=== PATIENT | male | born 1935 | race Caucasian/White ===

== ENCOUNTER 2017-07-01 09:22 | Observation (INO) | payer OTHER ==
[2017-07-01] MEDS ORDERED: MECLIZINE HCL 12.5 MG TAB ONE ×2 (10:16→14:18)
--- NOTE | 2017-07-01 10:52 | RAD REPORT ---
EXAM DESCRIPTION: CT - Head Brain Wo Cont - 07/01/2017 10:44 am CLINICAL HISTORY: Nausea, vomiting, dizziness and syncope. COMPARISON: None. TECHNIQUE: All CT scans are performed using dose optimization technique as appropriate and may inclu de automated exposure control or mA/KV adjustment according to patient size. FINDINGS: No intracranial hemorrhage, hydrocephalus or extra-axial fluid collection.Moderate brain a trophy.No areas of brain edema or evidence of midline shift. The paranasal sinuses and mastoids are clear. The calvarium is intact. IMPRESSION: No acute intracranial abnormality.
[2017-07-01 11:05] LABS: Absolute Lymphocytes (CBC) 0.5 K/uL (0.7-4.9); Absolute Monocytes 0.7 K/uL (0.1-1.3); Absolute Neutrophil 7.3 K/uL (1.8-8.0); Basophils % 0.3 % (0-1.3); Eosinophils % 3.4 % (0-4.4); Hematocrit 39.3 % (39.6-49.0); Lymphocytes % 5.5 % (15.3-44.8); MCH 30.8 pg (27.0-35.0); MCV 93.7 fL (80-100); Monocytes % 8.2 % (3.3-12.3)
[2017-07-01 11:07] LABS: Potassium 3.6 mEq/L (3.6-5.0)
--- NOTE | 2017-07-01 11:07 | RAD REPORT ---
EXAM DESCRIPTION: RAD - Chest Single View - 07/01/2017 10:54 am CLINICAL HISTORY: Chest pain, dizziness COMPARISON: 02/25/2016 FINDINGS: Portable technique limits examination quality. The lungs are grossly clear. The heart is normal in size. No displaced fractures. IMPRESSION: No acute intrathoracic process suspected.
[2017-07-01 11:13] LABS: Albumin 3.5 g/dL (3.2-5.5); Bilirubin Direct 0.1 mg/dL (0-0.2); Bilirubin Total 0.4 mg/dL (0.3-1.2); Protein, Total 6.8 g/dL (6.0-8.3); Protime INR 1.23
[2017-07-01 11:15] LABS: CKMB Creatine Kinase MB 4.7 ng/ml (0.3-4.0)
--- NOTE | 2017-07-01 13:35 | RAD REPORT ---
EXAM DESCRIPTION: CT - Head angio - 07/01/2017 1:14 pm CLINICAL HISTORY: Headache, dizziness. COMPARISON: 07/01/2017 CT head FINDINGS: CT angiogram of the [place] was performed. Codominant vertebral arteries are noted with normal vertebrobasilar system. No significant flow abnor mality of the [place] is identified. No evidence of aneurysm, flow-limiting stenosis or vascula r malformation seen. Dural venous sinuses are patent. IMPRESSION: No significant flow abnormality of the [place] is seen.
[2017-07-01] MEDS ORDERED: NA CHLORIDE 0.9% 500 ML ONE (14:33)
--- NOTE | 2017-07-01 15:39 | EDPHYS ---
Physician Documentation [facility] Name: Diogo Ingram Age: 81 yrs Sex: Male : 1935 Arrival Date: 07/01/2017 Time: 09:25 Bed 18 Private MD: Shaina Washington C ED Physician Reed Dozier HPI: 07/01 11:00 This 81 yrs old Male presents to ER via EMS with complaints of pm1 Nausea/Vomiting, Dizziness. 11:00 The patient presents with vertigo. Onset: The symptoms/episode began/occurred pm1 yesterday. Context: occurred at home, just prior to the episode the patient experienced no apparent symptoms. Modifying factors: The symptoms are alleviated by nothing, the symptoms are aggravated by movement of head, standing up, changing position. Associated signs and symptoms: Pertinent positives: nausea, vomiting, Pertinent negatives: abdominal pain, chest pain, focal weakness, headache, numbness, palpitations, shortness of breath, tingling. Severity of symptoms: in the emergency department the symptoms have improved nausea improved with Phenergan given by EMS. Patient's baseline: Neuro: alert and fully oriented, Motor: no deficits, Ambulation: walks without assistance, Speech: normal. The patient has not recently seen a physician, the patient's primary care provider is Dr. Washington. Patient with onset of spinning sensation yesterday while helping his son with yard work. Resolved but returned this AM same symptoms of room spinning, nausea, and vomiting. Historical: - Allergies: 09:26 PENICILLINS; hb - Home Meds: 18:14 Methotrexate (Anti-Rheumatic) 2.5 mg x 6 Oral weekly [Active]; Zocor 40 mg Oral tab 1 hb tab once daily [Active]; Aciphex 20 mg Oral TbEC 1 tab once daily [Active]; folic acid 1 mg Oral tab 1 tab once daily [Active]; levothyroxine 75 mcg tab 1.5 tabs once daily [Active]; Lyrica 25 mg oral cap daily [Active]; methylprednisolone 2 mg Oral tab once daily [Active]; meloxicam 7.5 mg oral tab 1 tab as needed [Active]; Xanax 1 mg Oral tab nightly [Active]; - PMHx: 16:00 Rheumatoid Arthritis; Hypothyroidism; hb - PSHx: 09:26 Heart stents; Hernia repair; hb - Immunization history:: Adult Immunizations up to date. - Social history:: Smoking status: Patient/guardian denies using tobacco. ROS: 11:00 Constitutional: Negative for fever, chills, and weight loss, Eyes: Negative for injury, pm1 pain, redness, and discharge, ENT: Negative for injury, pain, and discharge, Neck: Negative for injury, pain, and swelling, Cardiovascular: Negative for chest pain, palpitations, and edema, Respiratory: Negative for shortness of breath, cough, wheezing, and pleuritic chest pain, Abdomen/GI: Negative for abdominal pain, nausea, vomiting, diarrhea, and constipation, Back: Negative for injury and pain, : Negative for injury, bleeding, discharge, and swelling, MS/Extremity: Negative for injury and deformity, Skin: Negative for injury, rash, and discoloration. 11:00 Neuro: Positive for dizziness, vertigo, Negative for headache, numbness, tingling, focal weakness. Exam: 11:00 Constitutional: This is a well developed, well nourished patient who is awake, alert, pm1 and in no acute distress. Head/Face: Normocephalic, atraumatic. Eyes: Pupils equal round and reactive to light, extra-ocular motions intact. Lids and lashes normal. Conjunctiva and sclera are non-icteric and not injected. Cornea within normal limits. Periorbital areas with no swelling, redness, or edema. ENT: Nares patent. No nasal discharge, no septal abnormalities noted. Tympanic membranes are normal and external auditory canals are clear. Oropharynx with no redness, swelling, or masses, exudates, or evidence of obstruction, uvula midline. Mucous membranes moist. Neck: Trachea midline, no thyromegaly or masses palpated, and no cervical lymphadenopathy. Supple, full range of motion without nuchal rigidity, or vertebral point tenderness. No Meningismus. Chest/axilla: Normal chest wall appearance and motion. Nontender with no deformity. No lesions are appreciated. Cardiovascular: Regular rate and rhythm with a normal S1 and S2. No gallops, murmurs, or rubs. No pulse deficits. Respiratory: Lungs have equal breath sounds bilaterally, clear to auscultation and percussion. No rales, rhonchi or wheezes noted. No increased work of breathing, no retractions or nasal flaring. Abdomen/GI: Soft, non-tender, with normal bowel sounds. No distension or tympany. No guarding or rebound. No evidence of tenderness throughout. Back: No spinal tenderness. No costovertebral tenderness. Full range of motion. Skin: Warm, dry with normal turgor. Normal color with no rashes, no lesions, and no evidence of cellulitis. MS/ Extremity: Pulses equal, no cyanosis. Neurovascular intact. Full, normal range of motion. 11:00 Neuro: Orientation: is normal, Mentation: is normal, Cranial nerves: CN II- XII are normal as tested, Abnormal movements: Vestibular nystagmus present. Vertigo symptoms reproduced with changes in position from lying to sitting and turning head side to side. Vital Signs: 09:27 BP 138 / 70; Pulse 65; Resp 17; Temp 98.4; Pulse Ox 100% on R/A; Pain 0/10; hb 10:41 BP 129 / 65; Pulse 63; Resp 18; Pulse Ox 97% on R/A; mh5 11:31 BP 133 / 75; Pulse 58; Resp 17; Pulse Ox 97% on R/A; mh5 12:24 BP 120 / 65; Pulse 59; Resp 16; Pulse Ox 96% on R/A; mh5 13:31 BP 130 / 68; Pulse 60; Resp 15; Pulse Ox 99% on R/A; hb 14:30 BP 118 / 68; Pulse 65; Resp 16; Pulse Ox 100% on R/A; hb 15:30 BP 122 / 68; Pulse 64; Resp 15; Pulse Ox 100% on R/A; hb 16:30 BP 114 / 67; Pulse 62; Resp 16; Pulse Ox 100% on R/A; Pain 0/10; hb 17:30 BP 119 / 60; Pulse 64; Resp 17; Pulse Ox 100% on R/A; hb 18:30 BP 120 / 72; Pulse 64; Resp 16; Pulse Ox 98% on R/A; hb 19:25 BP 112 / 52; Pulse 59; Resp 17; Pulse Ox 98% ; bp 20:00 BP 116 / 56; Pulse 63; Resp 16; Pulse Ox 97% ; bp MDM: 09:53 Patient medically screened. pm1 10:30 ED course: NIHSS: 0. No stroke symptoms. No need for TPA. pm1 15:36 Data reviewed: vital signs. Data interpreted: Pulse oximetry: on room air is 99 %. pm1 Interpretation: normal. Counseling: I had a detailed discussion with the patient and/or guardian regarding: the historical points, exam findings, and any diagnostic results supporting the discharge/admit diagnosis, lab results, radiology results, the need for outpatient follow up, a neurologist, to return to the emergency department if symptoms worsen or persist or if there are any questions or concerns that arise at home. 17:05 ED course: Patient's symptoms of BPPV have markedly improved with meclizine and Valium pm1 given in the ER but patient's family feel uncomfortable taking the patient home without complete resolution and also due to the care taking ability of the patient's . Patient's uses rolling walker. Will contact patient's PCP for admission due to fall risk. 17:11 Physician consultation: A Felix VINCENT regarding admission, patient's condition, would like pm1 consultation with physical therapy, fall precautions, meclizine 25 mg PO Q6H. 07/01 10:05 Order name: Basic Metabolic Panel; Complete Time: 11: pm07/01 10:05 Order name: BNP; Complete Time: :07/01 10:05 Order name: CBC with Diff; Complete Time: :07/01 10:05 Order name: Ckmb; Complete Time: : pm07/01 10:05 Order name: CPK; Complete Time: 11: pm07/01 10:05 Order name: LFT's; Complete Time: 11: pm07/01 10:05 Order name: Magnesium; Complete Time: 11: pm07/01 10:05 Order name: PT-INR; Complete Time: 11: pm07/01 10:05 Order name: Ptt, Activated; Complete Time: 11: pm07/01 10:05 Order name: Troponin (emerg Dept Use Only); Complete Time: 11: pm07/01 10:05 Order name: XRAY Chest (1 view); Complete Time: 11: pm07/01 10:07 Order name: CT Head Brain wo Cont; Complete Time: 11: pm07/01 12:48 Order name: Head angio; Complete Time: 13:50 EDMS 07/01 15:14 Order name: Urine Dipstick--Ancillary (enter results); Complete Time: 17:03 bd 07/01 10:05 Order name: EKG; Complete Time: 10:06 pm1 07/01 10:05 Order name: Cardiac monitoring; Complete Time: 10:09 pm1 07/01 10:05 Order name: EKG - Nurse/Tech; Complete Time: 10:26 pm07/01 10:05 Order name: IV Saline Lock; Complete Time: 10: pm07/01 10:05 Order name: Labs collected and sent; Complete Time: 10:26 pm1 07/01 10:05 Order name: O2 Per Protocol; Complete Time: 10:09 pm1 07/01 10:05 Order name: O2 Sat Monitoring; Complete Time: 10:09 pm1 07/01 10:05 Order name: Urine Dipstick-Ancillary (obtain specimen); Complete Time: 15:13 pm1 07/01 17:27 Order name: Diet Regular; Complete Time: 17:27 hb Administered Medications: 10:20 Drug: Meclizine 25 mg Route: PO; hb 11:15 Follow up: Response: No adverse reaction hb 14:38 Drug: Meclizine 25 mg Route: PO; hb 15:15 Follow up: Response: No adverse reaction hb 14:39 Drug: NS 0.9% 500 ml Route: IV; Rate: bolus; Site: right antecubital; hb 15:15 Follow up: IV Status: Completed infusion hb 14:39 CANCELLED (Duplicate Order): NS 0.9% 500 ml IV at bolus bolus hb 16:20 Drug: Valium 2 mg Route: PO; hb 17:15 Follow up: Response: No adverse reaction hb 16:20 Drug: Phenergan 12.5 mg Route: IVP; Site: right antecubital; hb 17:00 Follow up: Response: No adverse reaction hb Disposition: 07/02 18:49 Co-signature as Attending Physician, Reed Dozier MD. gs Disposition: 07/01/17 17:17 Hospitalization ordered by Shaina Washington for Observation. Preliminary diagnosis are Benign paroxysmal vertigo, Nausea and vomiting. - Bed requested for Telemetry/MedSurg (observation). - Status is Observation. bp - Condition is Stable. - Problem is new. - Symptoms have improved. UTI on Admission? No Signatures: Dispatcher [employer] EDMS Marii Peoples bd Jose Ureña, FINGERNAIL TECHNICIAN FINGERNAIL TECHNICIAN pm1 Dionna Samano, RN RN hb Reed Dozier MD MD gs Peltier, Brian RN RN bp Corrections: (The following items were deleted from the chart) 07/01 14:39 14:38 NS 0.9% 500 ml IV at bolus bolus ordered. hb hb 15:41 15:39 07/01/2017 15:39 Discharged to Home. Impression: Benign paroxysmal vertigo. pm1 Condition is Stable. Forms are Medication Reconciliation Form, Thank You Letter, Antibiotic Education, Prescription Opioid Use. Follow up: Emergency Department; When: As needed; Reason: Worsening of condition. Follow up: Private Physician; When: 2 - 3 days; Reason: Recheck today's complaints, Continuance of care, Re-evaluation by your physician. Problem is new. Symptoms have improved. pm1 17:11 15:41 07/01/2017 15:39 Discharged to Home. Impression: Benign paroxysmal vertigo. pm1 Condition is Stable. Discharge Instructions: Benign Positional Vertigo. Prescriptions for Meclizine 25 mg Oral Tablet - take 1 tablet by ORAL route every 8 hours As needed; 30 tablet, Zofran ODT 4 mg Oral tablet,disintegrating - place 1 tablet by TRANSLINGUAL route every 8 hours As needed; 10 tablet. and Forms are Medication Reconciliation Form, Thank You Letter. Follow up: Emergency Department; When: As needed; Reason: Worsening of condition. Follow up: Private Physician; When: 2 - 3 days; Reason: Recheck today's complaints, Continuance of care, Re-evaluation by your physician. Follow up: Johnie Linares; When: 2 - 3 days; Reason: Recheck today's complaints, Continuance of care, Re-evaluation by your physician. Problem is new. Symptoms have improved. pm1 17:20 17:17 Hospitalization Ordered by A Felix VINCENT for Observation. Preliminary diagnosis is pm1 Benign paroxysmal vertigo. Bed requested for Telemetry/MedSurg (observation). Status is Observation. Condition is Stable. Problem is new. Symptoms have improved. UTI on Admission? No. pm1 18:06 17:20 07/01/2017 17:17 Hospitalization Ordered by A Felix VINCENT for Observation. bd Preliminary diagnosis is Benign paroxysmal vertigo; Nausea and vomiting. Bed requested for Telemetry/MedSurg (observation). Status is Observation. Condition is Stable. Problem is new. Symptoms have improved. UTI on Admission? No. pm1 18:35 17:11 Physician consultation: Shaina Washington MD pm1 pm1 20:17 18:06 07/01/2017 17:17 Hospitalization Ordered by A Felix VINCENT for Observation. bp Preliminary diagnosis is Benign paroxysmal vertigo; Nausea and vomiting. Bed requested for Telemetry/MedSurg (observation). Status is Observation. Condition is Stable. Problem is new. Symptoms have improved. UTI on Admission? No. bd
--- NOTE | 2017-07-01 15:39 | ER ---
Nurse's Notes [facility] Name: Diogo Ingram Age: 81 yrs Sex: Male : 1935 Arrival Date: 07/01/2017 Time: 09:25 Bed 18 Private MD: Shaina Washington C Diagnosis: Benign paroxysmal vertigo;Nausea and vomiting Presentation: 07/01 09:25 Presenting complaint: EMS states: N/V and dizziness x 2 days. Not tolerating liquids. hb Denies fever. Transition of care: patient was not received from another setting of care. Onset of symptoms was June 30, 2017. Initial Sepsis Screen: Does the patient meet any 2 criteria? No. Patient's initial sepsis screen is negative. Does the patient have a suspected source of infection? No. Patient's initial sepsis screen is negative. Care prior to arrival: Medication(s) given: Phenergan, 12.5 mg. 09:25 Method Of Arrival: EMS: [facility] 09:25 Acuity: ALYO 3 hb Historical: - Allergies: 09:26 PENICILLINS; hb - Home Meds: 18:14 Methotrexate (Anti-Rheumatic) 2.5 mg x 6 Oral weekly [Active]; Zocor 40 mg Oral tab 1 hb tab once daily [Active]; Aciphex 20 mg Oral TbEC 1 tab once daily [Active]; folic acid 1 mg Oral tab 1 tab once daily [Active]; levothyroxine 75 mcg tab 1.5 tabs once daily [Active]; Lyrica 25 mg oral cap daily [Active]; methylprednisolone 2 mg Oral tab once daily [Active]; meloxicam 7.5 mg oral tab 1 tab as needed [Active]; Xanax 1 mg Oral tab nightly [Active]; - PMHx: 16:00 Rheumatoid Arthritis; Hypothyroidism; hb - PSHx: 09:26 Heart stents; Hernia repair; hb - Immunization history:: Adult Immunizations up to date. - Social history:: Smoking status: Patient/guardian denies using tobacco. Screenin:10 Abuse screen: Denies threats or abuse. Denies injuries from another. Nutritional hb screening: No deficits noted. Tuberculosis screening: No symptoms or risk factors identified. Fall Risk Total Carrizales Fall Scale indicates Low Risk Score (25-44 pts). Fall prevention measures have been instituted. Side Rails Up X 2 Frequent Obs/Assesments occuring Family Present and informed to notify staff if they need to leave bedside As available Patient and Family Educated on Fall Prevention Program and strategies. Assessment: 09:45 General: Appears in no apparent distress. Behavior is calm, cooperative. Pain: Denies hb pain. Neuro: Level of Consciousness is awake, alert, obeys commands, Oriented to person, place, time, situation, Speech is normal, Facial symmetry appears normal, Pupils are PERRLA. Cardiovascular: Heart tones S1 S2 present Capillary refill < 3 seconds Patient's skin is warm and dry. Respiratory: Airway is patent Trachea midline Respiratory effort is even, unlabored, Respiratory pattern is regular, symmetrical, Breath sounds are clear bilaterally. GI: Abdomen is non-distended, Bowel sounds present X 4 quads. Abd is soft and non tender X 4 quads. Reports intolerance of fluids, nausea, vomiting. : No signs and/or symptoms were reported regarding the genitourinary system. EENT: No signs and/or symptoms were reported regarding the EENT system. Derm: No signs and/or symptoms reported regarding the dermatologic system. Skin is pink, warm \T\ dry. Musculoskeletal: No signs and/or symptoms reported regarding the musculoskeletal system. 10:45 Reassessment: Patient appears in no apparent distress at this time. No changes from hb previously documented assessment. Patient and/or family updated on plan of care and expected duration. Pain level reassessed. Patient is alert, oriented x 3, equal unlabored respirations, skin warm/dry/pink. Patient states symptoms have not improved. 11:35 Reassessment: Patient appears in no apparent distress at this time. No changes from hb previously documented assessment. Patient and/or family updated on plan of care and expected duration. Pain level reassessed. Patient is alert, oriented x 3, equal unlabored respirations, skin warm/dry/pink. Patient states symptoms have not improved. 12:30 Reassessment: Patient appears in no apparent distress at this time. No changes from hb previously documented assessment. Patient and/or family updated on plan of care and expected duration. Pain level reassessed. Patient is alert, oriented x 3, equal unlabored respirations, skin warm/dry/pink. Patient states symptoms have not improved. 13:30 Reassessment: Patient appears in no apparent distress at this time. No changes from hb previously documented assessment. Patient and/or family updated on plan of care and expected duration. Pain level reassessed. Patient is alert, oriented x 3, equal unlabored respirations, skin warm/dry/pink. Patient states symptoms have not improved. 14:30 Reassessment: No changes from previously documented assessment. Patient and/or family hb updated on plan of care and expected duration. Pain level reassessed. Patient is alert, oriented x 3, equal unlabored respirations, skin warm/dry/pink. SPEEDER OPERATOR Jose aware. Patient states symptoms have not improved. 15:30 Reassessment: Patient appears in no apparent distress at this time. Patient and/or hb family updated on plan of care and expected duration. Pain level reassessed. Patient is alert, oriented x 3, equal unlabored respirations, skin warm/dry/pink. Patient states symptoms have not improved. SPEEDER OPERATOR Jose aware. 16:20 Reassessment: Discharge ordered, pt c/o dizziness when sitting, unable to stand without hb c/o severe dizziness and nausea. IRAIDA Garcia notified, valium and phenergan administered as ordered. 17:30 Reassessment: Patient appears in no apparent distress at this time. No changes from hb previously documented assessment. Patient and/or family updated on plan of care and expected duration. Pain level reassessed. Patient is alert, oriented x 3, equal unlabored respirations, skin warm/dry/pink. 18:30 Reassessment: Patient appears in no apparent distress at this time. No changes from hb previously documented assessment. Patient and/or family updated on plan of care and expected duration. Pain level reassessed. Patient is alert, oriented x 3, equal unlabored respirations, skin warm/dry/pink. 19:00 Reassessment: RECD REPORT FROM DIONNA COMER. 81YO WM P/W N/V AND DIZZINESS, ADMIT IN bp PROCESS FOR VERTIGO. BED ASSIGNED AND ORDERS ON FILE. Vital Signs: 09:27 BP 138 / 70; Pulse 65; Resp 17; Temp 98.4; Pulse Ox 100% on R/A; Pain 0/10; hb 10:41 BP 129 / 65; Pulse 63; Resp 18; Pulse Ox 97% on R/A; mh5 11:31 BP 133 / 75; Pulse 58; Resp 17; Pulse Ox 97% on R/A; mh5 12:24 BP 120 / 65; Pulse 59; Resp 16; Pulse Ox 96% on R/A; mh5 13:31 BP 130 / 68; Pulse 60; Resp 15; Pulse Ox 99% on R/A; hb 14:30 BP 118 / 68; Pulse 65; Resp 16; Pulse Ox 100% on R/A; hb 15:30 BP 122 / 68; Pulse 64; Resp 15; Pulse Ox 100% on R/A; hb 16:30 BP 114 / 67; Pulse 62; Resp 16; Pulse Ox 100% on R/A; Pain 0/10; hb 17:30 BP 119 / 60; Pulse 64; Resp 17; Pulse Ox 100% on R/A; hb 18:30 BP 120 / 72; Pulse 64; Resp 16; Pulse Ox 98% on R/A; hb 19:25 BP 112 / 52; Pulse 59; Resp 17; Pulse Ox 98% ; bp 20:00 BP 116 / 56; Pulse 63; Resp 16; Pulse Ox 97% ; bp ED Course: 09:25 Patient arrived in ED. hb 09:26 Triage completed. hb 09:38 Jose Ureña NP is PHCP. pm1 09:38 Reed Dozier MD is Attending Physician. pm1 09:40 Patient has correct armband on for positive identification. Placed in gown. Bed in low hb position. Call light in reach. Side rails up X2. 10:00 Arm band placed on right wrist. hb 10:08 Dionna Samano, RN is Primary Nurse. hb 10:14 Note: attempted to get pt for head ct, labs and iv at time of arrival, lucia to call sw when pt is ready. 10:33 Initial lab(s) drawn, by me, sent to lab. Inserted saline lock: 22 gauge in right mh5 antecubital area, using aseptic technique. Blood collected. 10:34 Adult w/ patient. Warm blanket given. Pillow given. director of entertainment on. Pulse ox on. mh5 NIBP on. 10:34 EKG done, by diet tech. reviewed by Jose Ureña NP. sm3 10:37 CT completed. Patient tolerated procedure well. Patient moved to CT via stretcher. sj Patient moved back from CT. 10:39 Shaina Washington MD is Private Physician. as 10:44 CT Head Brain wo Cont In Process Unspecified. EDMS 10:51 X-ray completed. Patient tolerated procedure well. Patient moved to radiology via stretcher. 10:52 XRAY Chest (1 view) In Process Unspecified. EDMS 13:08 CT completed. Patient tolerated procedure well. Patient moved to CT via stretcher. Patient moved back from CT. 13:14 Head angio In Process Unspecified. EDMS 15:41 Johnie Linares MD is Referral Physician. pm1 17:12 Shaina Washington MD is Hospitalizing Provider. pm1 19:00 Primary Nurse role handed off by Dionna Samano, NAHOMI bp 19:00 Gonzalez Knight, RN is Primary Nurse. bp 20:10 No provider procedures requiring assistance completed. Patient admitted, IV remains in bp place. Administered Medications: 10:20 Drug: Meclizine 25 mg Route: PO; hb 11:15 Follow up: Response: No adverse reaction hb 14:38 Drug: Meclizine 25 mg Route: PO; hb 15:15 Follow up: Response: No adverse reaction hb 14:39 Drug: NS 0.9% 500 ml Route: IV; Rate: bolus; Site: right antecubital; hb 15:15 Follow up: IV Status: Completed infusion hb 14:39 CANCELLED (Duplicate Order): NS 0.9% 500 ml IV at bolus bolus hb 16:20 Drug: Valium 2 mg Route: PO; hb 17:15 Follow up: Response: No adverse reaction hb 16:20 Drug: Phenergan 12.5 mg Route: IVP; Site: right antecubital; hb 17:00 Follow up: Response: No adverse reaction hb Outcome: 15:39 Discharge ordered by MD. pm1 17:17 Decision to Hospitalize by Provider. pm1 20:10 Admitted to Tele accompanied by tech, family with patient, via stretcher, room 204, bp with chart, Report called to ISABELLA RN 20:10 Condition: stable bp 20:10 Instructed on the need for admit. 20:17 Patient left the ED. bp Signatures: Dispatcher [employer] EDMS Kina Gil, Erika Kiser Shannon sw Marinas, Patrick, SPEEDER OPERATOR SPEEDER OPERATOR pm1 Dionna Samano RN RN Preeti Garcia [facility] Gonzalez Knight, NAHOMI RN Bonnie Rene 3 Corrections: (The following items were deleted from the chart) 16:49 10:45 Reassessment: Patient appears in no apparent distress at this time. No changes hb from previously documented assessment. Patient and/or family updated on plan of care and expected duration. Pain level reassessed. Patient is alert, oriented x 3, equal unlabored respirations, skin warm/dry/pink. hb 16:49 11:35 Reassessment: Patient appears in no apparent distress at this time. No changes hb from previously documented assessment. Patient and/or family updated on plan of care and expected duration. Pain level reassessed. Patient is alert, oriented x 3, equal unlabored respirations, skin warm/dry/pink. hb 16:49 12:30 Reassessment: Patient appears in no apparent distress at this time. No changes hb from previously documented assessment. Patient and/or family updated on plan of care and expected duration. Pain level reassessed. Patient is alert, oriented x 3, equal unlabored respirations, skin warm/dry/pink. hb 16:49 13:30 Reassessment: Patient appears in no apparent distress at this time. No changes hb from previously documented assessment. Patient and/or family updated on plan of care and expected duration. Pain level reassessed. Patient is alert, oriented x 3, equal unlabored respirations, skin warm/dry/pink. hb
--- NOTE | 2017-07-01 15:40 | EKG ---
Test Date: 2017-07-01 Test Time: 10:14:37 Internet Sales Representative: TREY MEASUREMENT RESULTS: Intervals: Rate: 62 DE: 206 QRSD: 136 QT: 444 QTc: 450 [place]: P: 29 DE: 206 QRS: -33 T: 8 INTERPRETIVE STATEMENTS: Sinus rhythm with premature supraventricular complexes Left axis deviation Right bundle branch block Abnormal ECG Compared to ECG 04/18/2014 12:30:30 Atrial premature complex(es) now present Right bundle-branch block now present Sinus tachycardia no longer present ST (T wave) deviation no longer present Electronically Signed On 07-01-17 15:39:18 CDT by John Huddleston
[2017-07-01] MEDS ORDERED: DIAZEPAM 5 MG TABLET ONE (15:50)
[2017-07-01] MEDS ORDERED: PROMETHAZINE 25 MG/ML VIAL ONE (15:50)
[2017-07-01 16:57] LABS: Urine Blood 1+ (NEG); Urine Glucose NEGATIVE (NEG); Urine Protein NEGATIVE (NEG); Urine Specific Gravity 1.015 (1.005-1.030); Urine pH 8.5 (5.0-7.0)
[2017-07-01] MEDS ORDERED: PANTOPRAZOLE 40MG TABLET PO ONE (20:17)
[2017-07-01] MEDS ORDERED: MECLIZINE HCL 12.5 MG TAB PO PRN (20:17)
[2017-07-01] MEDS ORDERED: ALPRAZOLAM 1 MG TABLET PO PRN (20:17)
[2017-07-01 20:55] VITALS: BMI 23.6
[2017-07-01] MEDS ORDERED: ATORVASTATIN 20 MG TAB PO SCH (21:00)
[2017-07-01 21:25] LABS: Urine Appearance CLEAR; Urine Bilirubin NEGATIVE (NEG); Urine Blood 1+ (NEG); Urine Color YELLOW; Urine Glucose NEGATIVE (NEG); Urine Protein NEGATIVE (NEG); Urine Specific Gravity 1.025 (1.005-1.030); Urine Urobilinogen 0.2 mg/dL (0.2-1.0)
[2017-07-01 21:26] LABS: Urine Microscopic Reflex ORDER UMIC
[2017-07-01 21:49] LABS: Urine Bacteria NONE SEEN /HPF (NONE SEEN)
[2017-07-01 21:50] LABS: Urine Culture Reflex Order NOT NEEDED
[2017-07-02] MEDS: ACETAMINOPHEN 500 MG TAB PO PRN ×2 (04:27→11:19)
[2017-07-02 04:46] LABS: Absolute Lymphocytes (CBC) 0.9 K/uL (0.7-4.9); Absolute Monocytes 0.7 K/uL (0.1-1.3); Absolute Neutrophil 5.8 K/uL (1.8-8.0); Basophils % 0.5 % (0-1.3); Eosinophils % 10.4 % (0-4.4); Lymphocytes % 10.6 % (15.3-44.8); MCH 30.8 pg (27.0-35.0); MCV 93.1 fL (80-100); MPV 7.8 fL (7.6-11.3); Monocytes % 8.1 % (3.3-12.3); RBC Red Blood Cell Count 4.09 M/uL (4.33-5.43)
[2017-07-02 05:24] LABS: BUN Blood Urea Nitrogen 15 mg/dL (6-20); Bicarbonate 27 mEq/L (21-31); Glucose Level 94 mg/dL (65-120); Sodium Level 138 mEq/L (135-145)
[2017-07-02] MEDS ORDERED: LEVOTHYROXINE SOD 0.112 MG TAB PO SCH (06:00)
[2017-07-02 08:16] VITALS: O2SAT 93
[2017-07-02] MEDS ORDERED: PREGABALIN 50 MG CAP PO SCH (09:00)
[2017-07-02] MEDS ORDERED: FOLIC ACID 1 MG TABLET PO SCH (09:00)
[2017-07-02] MEDS ORDERED: methylPREDNISolone 4 MG TAB PO SCH (09:00)
[2017-07-02 13:36] VITALS: TEMP 97.6
--- NOTE | 2017-07-02 16:14 | HP ---
Date of Admission: 07/02/2017 Chief Complaint: Dizziness and nausea. History Of Present Illness: This is an 81-year-old male patient, who was doing fine until day before yesterday. He started to have some dizziness associated with nausea. The patient got better and yesterday he had worsening of his symptoms of dizziness, so he came into emergency room. He describes his dizziness as room and objects spinning around. Dizziness is brought upon with change of position and better at rest. No fall. No injury. No fever or chills. No visual complaints. He was evaluated in emergency room yesterday and was given meclizine. CAT scan of the head was negative. The patient was not stable enough to go home, so I was contacted requesting admission to the hospital and this morning when I saw him, he was much better than yesterday. No new complaints or problems reported since his admission. Allergies: PENICILLIN AND NEXIUM. Medication: List reviewed. Review of Systems: LOT ASSOCIATE: As mentioned above. All other systems reviewed and negative. Family History: Significant for osteoarthritis, emphysema. Social History: . Lives at home. Negative for smoking and alcohol use. Past Medical History: Significant for coronary artery disease, hypothyroidism, gastroesophageal reflux disease, hypertension, diverticulosis, hyperlipidemia, rheumatoid arthritis, insomnia, allergic rhinitis, osteopenia. Past Surgical History: Coronary artery angioplasty with stent placement in 2010 and hernia repair. Physical Examination: Vital Signs: Height 6 feet, weight 174 pounds. Temperature 97.8, pulse 63, respiratory rate 18, blood pressure 117/58, and oxygen saturation 96%. General: Awake, alert, oriented, not in distress. HEENT: Head atraumatic, normocephalic. Conjunctivae nonerythematous. Sclerae white. Mouth, no thrush or edema noted. Ears/Nose, no mass, lesion, discharge noted. Neck: Supple. No JVD, lymph nodes, bruit, thyromegaly noted. Lungs: Bilateral good equal air entry. Clear to auscultation. No rhonchi. No rales. Heart: Normal heart sounds, no murmur or gallop. Abdomen: Soft, bowel sounds normal. No guarding, rigidity, tenderness, mass, hepatosplenomegaly, distention, or bruit noted. Extremities: No leg edema. No calf tenderness. Skin: No rash, ulcer, cellulitis. Lymphatics: No lymph node enlargement in neck, supraclavicular, infraclavicular region. Neuro: No focal neurological deficit. Chest: Unremarkable. External Genitalia: Deferred. Rectal: Deferred. Laboratory Data: Yesterday white count 8.8, hemoglobin 12.9, platelets 311. Today white count 8.2, hemoglobin 12.6, platelets 276. INR 1.23. Yesterday sodium 137, potassium 3.6, chloride 101, bicarb 30, BUN 18, creatinine 0.83, glucose 124. Liver function tests unremarkable. Troponin less than 0.03. BNP 158. Today chem-7 unremarkable. Urinalysis negative. CAT scan of the brain was negative for any acute intracranial changes and the patient also had CT angiogram of the intracranial arteries which was negative as well. EKG sinus rhythm, premature supraventricular complex. Chest x-ray, no acute intrathoracic changes. Hospital Course: After the patient was evaluated in ER, he was admitted to the hospital. Meclizine was ordered on a p.r.n. basis for him. ,Overnight his condition has remained stable, in fact he is doing much better. I have encouraged him to ambulate with assistance this morning and after lunch we will go ahead and plan to discharge him to go home. The patient was advised to change position slowly. He was also instructed to use meclizine as prescribed and not to drive car or operate any hazardous machine after taking meclizine as it may cause drowsiness in some patients. Final Diagnoses: 1. Benign positional vertigo. 2. Coronary artery disease. 3. Hypertension. 4. Hyperlipidemia. 5. Gastroesophageal reflux disease. 6. Rheumatoid arthritis. 7. Diverticulosis. 8. Hypothyroidism. 9. Insomnia. 10. Allergic rhinitis. 11. Osteopenia. Discharge Medications And Instructions: 1. Continue all prior home medications. 2. Use meclizine 25 mg 4 times a day as needed for dizziness. Do not drive car or operate any hazardous machines after using this medication. 3. Follow up at my office as per scheduled appointment. XENIA/ROB Voice ID: [id number] [email or web address]
[2017-07-02 17:30] VITALS: BP 130/61
== END 2017-07-02 19:15 | disposition home or self-care (01) ==
LOC: ER 09:22 → ERHOLD 17:21 → 2ND 20:05
PROVIDERS: ADMIT Internal Medicine; ATTEND Internal Medicine
DX: H81.10 Benign paroxysmal vertigo, unspecified ear (principal); I25.10 Atherosclerotic heart disease of native coronary artery without angina pectoris; Z95.5 Presence of coronary angioplasty implant and graft; I10 Essential (primary) hypertension; E03.9 Hypothyroidism, unspecified; K21.9 Gastro-esophageal reflux disease without esophagitis; E78.5 Hyperlipidemia, unspecified; M06.9 Rheumatoid arthritis, unspecified; J30.9 Allergic rhinitis, unspecified; M85.80 Other specified disorders of bone density and structure, unspecified site; K57.90 Diverticulosis of intestine, part unspecified, without perforation or abscess without bleeding; G47.00 Insomnia, unspecified; Z88.0 Allergy status to penicillin
CPT/HCPCS: 36415; 70450; 70496; 71045; 80048 ×2; 80076; 82550; 82553; 83735; 83880; 84484; 85025 ×2; 85610; 85730; 93005; 96361; 96374; 97163; 99285; G0378 ×2; J2550; Q9967; 81003; 81015; J7509

== ENCOUNTER 2017-10-11 11:56 | Observation (INO) | payer OTHER ==
[2017-10-11 13:01] LABS: Absolute Lymphocytes (CBC) 0.4 K/uL (0.7-4.9); Absolute Monocytes 0.8 K/uL (0.1-1.3); Absolute Neutrophil 6.8 K/uL (1.8-8.0); Basophils % 0.6 % (0-1.3); Eosinophils % 10.4 % (0-4.4); Hematocrit 34.8 % (39.6-49.0); Lymphocytes % 4.9 % (15.3-44.8); MCH 30.2 pg (27.0-35.0); MCV 90.7 fL (80-100); MPV 7.7 fL (7.6-11.3); Monocytes % 9.3 % (3.3-12.3); RBC Red Blood Cell Count 3.84 M/uL (4.33-5.43)
[2017-10-11 13:08] LABS: Protime INR 1.52
--- NOTE | 2017-10-11 13:09 | RAD REPORT ---
EXAM DESCRIPTION: CT - Head Brain Wo Cont - 10/11/2017 1:00 pm CLINICAL HISTORY: WEAKNESS CVA COMPARISON: Head angio dated 07/01/2017; Head Brain Wo Cont dated 07/01/2017 TECHNIQUE: All CT scans are performed using dose optimization technique as appropriate and may inclu de automated exposure control or mA/KV adjustment according to patient size. FINDINGS: No intracranial hemorrhage, hydrocephalus or extra-axial fluid collection.Moderate general ized brain atrophy is present with mild periventricular and deep white matter chronic microvascular i schemic changes.No areas of brain edema or evidence of midline shift. The paranasal sinuses and mastoids are clear. The calvarium is intact. IMPRESSION: No acute intracranial abnormality.
--- NOTE | 2017-10-11 13:15 | RAD REPORT ---
EXAM DESCRIPTION: RAD - Chest Single View - 10/11/2017 12:58 pm CLINICAL HISTORY: weakness Chest pain. COMPARISON: Chest Single View dated 07/01/2017; Chest Pa And Lat (2 Views) dated 02/25/2016; CHEST SIN GLE VIEW dated 04/18/2014; CHEST SINGLE VIEW dated 02/23/2014 FINDINGS: Portable technique limits examination quality. The lungs are mildly emphysematous but clear. The heart is normal in size. No displaced fractures. IMPRESSION: Prominent COPD.
[2017-10-11 13:19] LABS: ALT/SGPT 20 U/L (12-78); AST/SGOT 23 U/L (15-37); Albumin 2.5 g/dL (3.4-5.0); Alkaline Phosphatase 109 U/L (45-117); Amylase Level 48 U/L (25-115); BUN Blood Urea Nitrogen 18 mg/dL (7-18); Bicarbonate 29 mmol/L (21-32); Bilirubin Direct 0.1 mg/dL (0-0.2); Bilirubin Total 0.3 mg/dL (0.2-1.0); CKMB Creatine Kinase MB < 1.0 ng/mL (0.3-3.6); Creatine Phosphokinase 72 U/L (39-308); Glucose Level 90 mg/dL (74-106); Lipase 66 U/L (73-393); Potassium 4.1 mmol/L (3.5-5.1); Protein, Total 7.1 g/dL (6.4-8.2); Sodium Level 137 mmol/L (136-145)
[2017-10-11 13:47] LABS: Magnesium 2.2 mg/dL (1.8-2.4)
[2017-10-11] MEDS ORDERED: NA CHLORIDE 0.9% 1,000 ML ONE (13:51)
[2017-10-11] MEDS ORDERED: NA CHLORIDE 0.9% 500 ML ONE (13:51)
[2017-10-11] MEDS ORDERED: CEFEPIME/SWI 2gm 2 GM/20 ML SYR IVP ONE (14:15)
--- NOTE | 2017-10-11 14:58 | ER ---
Nurse's Notes [facility] Department Name: Diogo Ingram Age: 81 yrs Sex: Male : 1935 Arrival Date: 10/11/2017 Time: 11:59 Bed 15 Private MD: Diagnosis: Weakness;Malaise and fatigue Presentation: 10/11 11:59 Presenting complaint: Patient states: I cant get up today, I am just weak and tired all ch over. I bruise very easily, always have. You all have to be careful with me. EMS states: pt states he is so weak today, cannot get out of bed. denies other symptoms. Transition of care: patient was not received from another setting of care. Onset of symptoms was October 11, 2017 at 07:00. Risk Assessment: Do you want to hurt yourself or someone else? Patient reports no desire to harm self or others. Initial Sepsis Screen: Does the patient meet any 2 criteria? No. Patient's initial sepsis screen is negative. Does the patient have a suspected source of infection? No. Patient's initial sepsis screen is negative. Care prior to arrival: None. 11:59 Method Of Arrival: EMS: [facility] 11:59 Acuity: LAYO 3 ch Triage Assessment: 12:01 General: Appears in no apparent distress. comfortable, Behavior is calm, cooperative, ch appropriate for age. Pain: Denies pain. Historical: - Allergies: 12:01 PENICILLINS; ch - Home Meds: 12:01 Aciphex 20 mg Oral TbEC 1 tab once daily [Active]; folic acid 1 mg Oral tab 1 tab once ch daily [Active]; levothyroxine 75 mcg tab 1.5 tabs once daily [Active]; Lyrica 25 mg Oral cap daily [Active]; meloxicam 7.5 mg Oral tab 1 tab as needed [Active]; Methotrexate (Anti-Rheumatic) 2.5 mg x 6 Oral WEEKLY [Active]; methylprednisolone 2 mg Oral tab once daily [Active]; Xanax 1 mg Oral tab nightly [Active]; Zocor 40 mg Oral tab 1 tab once daily [Active]; - PMHx: 12:01 Hypothyroidism; Rheumatoid Arthritis; failed stress test; ch - PSHx: 12:01 Hernia repair; Heart stents; ch - Immunization history:: Adult Immunizations up to date. - Social history:: Smoking status: Patient/guardian denies using tobacco. - Ebola Screening: : Patient negative for fever greater than or equal to 101.5 degrees Fahrenheit, and additional compatible Ebola Virus Disease symptoms Patient denies exposure to infectious person Patient denies travel to an Ebola-affected area in the 21 days before illness onset No symptoms or risks identified at this time. Screenin:01 Abuse screen: Denies threats or abuse. Denies injuries from another. Nutritional hj screening: No deficits noted. Tuberculosis screening: No symptoms or risk factors identified. Fall Risk None identified. Assessment: 12:15 General: Appears in no apparent distress. uncomfortable, Behavior is calm, cooperative, hj appropriate for age. Pain: Denies pain. Neuro: Level of Consciousness is awake, alert, obeys commands, Oriented to person, place, time, situation, Appropriate for age Reports weakness. Cardiovascular: Heart tones S1 S2 present Capillary refill < 3 seconds Patient's skin is warm and dry. Respiratory: Airway is patent Respiratory effort is even, unlabored, Respiratory pattern is regular, symmetrical. GI: No signs and/or symptoms were reported involving the gastrointestinal system. : No signs and/or symptoms were reported regarding the genitourinary system. EENT: No signs and/or symptoms were reported regarding the EENT system. noted to have bilateral eyelid puffiness. Derm: No signs and/or symptoms reported regarding the dermatologic system. Rash noted that is generalized redness all over the patient's upper and lower limbs. Bruising that is dark purple, generalized noted in bilateral upper limbs. Musculoskeletal: No signs and/or symptoms reported regarding the musculoskeletal system. 13:35 Reassessment: Verified with pharmacy and Dr. Nowak that the patient has allergy to cc3 Penicillin and Dr. Nowak said still to give his ordered Cefepime 2 grams IV medication. 13:50 Reassessment: Faxed the ordered Cefepime 2 grams IV to pharmacy, verified with cc3 pharmacist Dirk and he said he got the faxed medication. 14:30 Reassessment: Patient appears in no apparent distress at this time. Patient and/or hj family updated on plan of care and expected duration. Pain level reassessed. Patient is alert, oriented x 3, equal unlabored respirations, skin warm/dry/pink. Patient denies pain at this time. 15:48 Reassessment: Patient appears in no apparent distress at this time. Patient and/or hj family updated on plan of care and expected duration. Pain level reassessed. Patient is alert, oriented x 3, equal unlabored respirations, skin warm/dry/pink. Patient denies pain at this time. 16:30 Reassessment: Patient appears in no apparent distress at this time. Patient and/or cc3 family updated on plan of care and expected duration. Pain level reassessed. Patient is alert, oriented x 3, equal unlabored respirations, skin warm/dry/pink. 17:47 Reassessment: Patient complained of abdominal pain, informed Dr. Nowak and new order cc3 for CT scan stone protocol was ordered. 18:15 Reassessment: Patient came back from CT scan department and CT scan stone protocol was cc3 done, awaiting final report. 19:15 Reassessment: Patient appears in no apparent distress at this time. Patient and/or aa1 family updated on plan of care and expected duration. Pain level reassessed. Patient is alert, oriented x 3, equal unlabored respirations, skin warm/dry/pink. Awaiting bed assignment. 20:32 Reassessment: Patient appears in no apparent distress at this time. Patient is alert, aa1 oriented x 3, equal unlabored respirations, skin warm/dry/pink. Report given to Kate on 2nd floor. Vital Signs: 12:00 BP 120 / 61; Pulse 80; Resp 20; Pulse Ox 98% on NC; 5 12:01 Weight 81.65 kg; Height 6 ft. (182.88 cm); Pain 0/10; 14:21 BP 114 / 54; Pulse 82; Resp 18; Pulse Ox 96% on NC; mh5 15:00 BP 109 / 62; Pulse 69; Resp 19; Pulse Ox 100% on 1 lpm NC; hj 16:15 BP 115 / 60; Pulse 70; Resp 20; Temp 99; Pulse Ox 98% 1 lpm ; hj 17:40 BP 107 / 58; Pulse 70; Resp 19; Temp 99.5; Pulse Ox 98% 1 lpm ; Pain 0/10; hj 18:45 BP 110 / 53; Pulse 67; Resp 18; Pulse Ox 96% on R/A; Pain 5/10; cc3 20:28 BP 112 / 79; Pulse 62; Resp 16; Pulse Ox 95% on R/A; Pain 0/10; aa1 12:01 Body Mass Index 24.41 (81.65 kg, 182.88 cm) ED Course: 11:59 Patient arrived in ED. 12:00 Triage completed. 12:01 Arm band placed on left wrist. Patient placed in an exam room, on a stretcher, on quality assurance monitor final, on pulse oximetry. 12:01 Patient has correct armband on for positive identification. Placed in gown. Bed in low hj position. Call light in reach. Side rails up X 1. Adult w/ patient. 12:02 Rajni Dominique is Primary Nurse. cc3 12:04 EKG done, by planning technician. reviewed by Cedric Erwin MD. at1 12:24 security monitor on. Pulse ox on. NIBP on. mh5 12:24 Initial lab(s) drawn, by va, held in ED. Inserted saline lock: 20 gauge in right 5 antecubital area, using aseptic technique. Blood collected. 12:52 Wilber Nowak MD is Attending Physician. [facility] 12:57 X-ray completed. Portable x-ray completed in exam room. Patient tolerated procedure ml well. 12:58 Chest Single View XRAY In Process Unspecified. EDMS 12:58 CT completed. Patient tolerated procedure well. Patient moved to CT via stretcher. Patient moved back from CT. 13:01 CT Head Brain wo Cont In Process Unspecified. EDMS 13:15 T\T\S Sent. hj 14:11 sent to lab. 5 14:56 Johnathan Washington MD is Hospitalizing Provider. [facility] 18:[address] via stretcher. cw1 19:00 Report given to NAHOMI Martins for continuity of care. cc3 20:29 No provider procedures requiring assistance completed. Patient admitted, IV remains in aa1 place. Administered Medications: 13:30 Drug: NS 0.9% 500 ml Route: IV; Rate: bolus; Site: right antecubital; cc3 13:50 Follow up: IV Status: Completed infusion; IV Intake: 500ml hj 14:17 Drug: NS 0.9% 1000 ml Route: IV; Rate: 125 ml/hr; Site: left forearm; hj 15:37 Follow up: IV Status: Infusion continued upon admission hj 14:17 Drug: Cefepime 2 grams Route: IVPB; Rate: 200 ml/hr; Infused Over: 30 mins; Site: left hj forearm; 14:45 Follow up: Response: No adverse reaction Intake: 13:50 IV: 500ml; Total: 500ml. Outcome: 14:57 Decision to Hospitalize by Provider. carol 21:01 Admitted to Tele accompanied by nurse, family with patient, via stretcher, room 221, aa1 with chart, Report called to Veneta 21:01 Condition: stable 21:01 Instructed on the need for admit, Demonstrated understanding of instructions. 21:03 Patient left the ED. aa1 Signatures: Dispatcher [employer] EDMS Nelly Calabrese, RN RN Maddie Cooper RN RN aa1 Wilber Nowak MD MD cha Jones, Kina Michaels, Ana Laura Ruff cw1 Joycelyn Stoll, information security architect EKG Tat1 Gustabo Sykes RN RN hj Martinez, [facility] Rajni Dominique cc3 Corrections: (The following items were deleted from the chart) 14:04 13:35 Reassessment: Verified with pharmacy and Dr. Nowak that the patient has cc3 allergy to Penicillin and Dr. Nowak said still to give his ordered Cefepime IV medication. [facility] 15:47 12:15 EENT: No signs and/or symptoms were reported regarding the EENT system. [facility] 15:47 12:15 Derm: No signs and/or symptoms reported regarding the dermatologic system. [facility]
--- NOTE | 2017-10-11 14:58 | EDPHYS ---
Physician Documentation [facility] Name: Diogo Ingram Age: 81 yrs Sex: Male : 1935 Arrival Date: 10/11/2017 Time: 11:59 Bed 15 Private MD: ED Physician Wilber Nowak HPI: 10/11 13:13 This 81 yrs old Male presents to ER via EMS with complaints of General carol Weakness. 13:13 weak, fever, non focal. Onset: The symptoms/episode began/occurred 2 day(s) ago. carol Severity of symptoms: At their worst the symptoms were moderate in the emergency department the symptoms are unchanged. The patient has experienced similar episodes in the past, a few times. Historical: - Allergies: 12:01 PENICILLINS; ch - Home Meds: 12:01 Aciphex 20 mg Oral TbEC 1 tab once daily [Active]; folic acid 1 mg Oral tab 1 tab once ch daily [Active]; levothyroxine 75 mcg tab 1.5 tabs once daily [Active]; Lyrica 25 mg Oral cap daily [Active]; meloxicam 7.5 mg Oral tab 1 tab as needed [Active]; Methotrexate (Anti-Rheumatic) 2.5 mg x 6 Oral WEEKLY [Active]; methylprednisolone 2 mg Oral tab once daily [Active]; Xanax 1 mg Oral tab nightly [Active]; Zocor 40 mg Oral tab 1 tab once daily [Active]; - PMHx: 12:01 Hypothyroidism; Rheumatoid Arthritis; failed stress test; ch - PSHx: 12:01 Hernia repair; Heart stents; ch - Immunization history:: Adult Immunizations up to date. - Social history:: Smoking status: Patient/guardian denies using tobacco. - Ebola Screening: : Patient negative for fever greater than or equal to 101.5 degrees Fahrenheit, and additional compatible Ebola Virus Disease symptoms Patient denies exposure to infectious person Patient denies travel to an Ebola-affected area in the 21 days before illness onset No symptoms or risks identified at this time. ROS: 13:14 Constitutional: Negative for fever, chills, and weight loss, Eyes: Negative for injury, carol pain, redness, and discharge, ENT: Negative for injury, pain, and discharge, Neck: Negative for injury, pain, and swelling, Cardiovascular: Negative for chest pain, palpitations, and edema, Respiratory: Negative for shortness of breath, cough, wheezing, and pleuritic chest pain, Abdomen/GI: Negative for abdominal pain, nausea, vomiting, diarrhea, and constipation, Back: Negative for injury and pain, : Negative for injury, bleeding, discharge, and swelling, MS/Extremity: Negative for injury and deformity, Skin: Negative for injury, rash, and discoloration, Psych: Negative for depression, anxiety, suicide ideation, homicidal ideation, and hallucinations, Allergy/Immunology: Negative for hives, rash, and allergies, Endocrine: Negative for neck swelling, polydipsia, polyuria, polyphagia, and marked weight changes, Hematologic/Lymphatic: Negative for swollen nodes, abnormal bleeding, and unusual bruising. 13:14 Neuro: Positive for weakness. Exam: 13:14 Constitutional: This is a well developed, well nourished patient who is awake, alert, carol and in no acute distress. Head/Face: Normocephalic, atraumatic. Eyes: Pupils equal round and reactive to light, extra-ocular motions intact. Lids and lashes normal. Conjunctiva and sclera are non-icteric and not injected. Cornea within normal limits. Periorbital areas with no swelling, redness, or edema. ENT: Nares patent. No nasal discharge, no septal abnormalities noted. Tympanic membranes are normal and external auditory canals are clear. Oropharynx with no redness, swelling, or masses, exudates, or evidence of obstruction, uvula midline. Mucous membranes moist. Neck: Trachea midline, no thyromegaly or masses palpated, and no cervical lymphadenopathy. Supple, full range of motion without nuchal rigidity, or vertebral point tenderness. No Meningismus. Chest/axilla: Normal chest wall appearance and motion. Nontender with no deformity. No lesions are appreciated. Cardiovascular: Regular rate and rhythm with a normal S1 and S2. No gallops, murmurs, or rubs. Normal PMI, no JVD. No pulse deficits. Respiratory: Lungs have equal breath sounds bilaterally, clear to auscultation and percussion. No rales, rhonchi or wheezes noted. No increased work of breathing, no retractions or nasal flaring. Abdomen/GI: Soft, non-tender, with normal bowel sounds. No distension or tympany. No guarding or rebound. No evidence of tenderness throughout. Back: No spinal tenderness. No costovertebral tenderness. Full range of motion. Male : Normal genitalia with no discharge or lesions. Skin: Warm, dry with normal turgor. Normal color with no rashes, no lesions, and no evidence of cellulitis. MS/ Extremity: Pulses equal, no cyanosis. Neurovascular intact. Full, normal range of motion. Neuro: Awake and alert, GCS 15, oriented to person, place, time, and situation. Cranial nerves II-XII grossly intact. Motor strength 5/5 in all extremities. Sensory grossly intact. Cerebellar exam normal. Normal gait. Psych: Awake, alert, with orientation to person, place and time. Behavior, mood, and affect are within normal limits. Vital Signs: 12:00 BP 120 / 61; Pulse 80; Resp 20; Pulse Ox 98% on NC; 5 12:01 Weight 81.65 kg; Height 6 ft. (182.88 cm); Pain 0/10; 14:21 BP 114 / 54; Pulse 82; Resp 18; Pulse Ox 96% on NC; 5 15:00 BP 109 / 62; Pulse 69; Resp 19; Pulse Ox 100% on 1 lpm NC; hj 16:15 BP 115 / 60; Pulse 70; Resp 20; Temp 99; Pulse Ox 98% 1 lpm ; hj 17:40 BP 107 / 58; Pulse 70; Resp 19; Temp 99.5; Pulse Ox 98% 1 lpm ; Pain 0/10; hj 18:45 BP 110 / 53; Pulse 67; Resp 18; Pulse Ox 96% on R/A; Pain 5/10; cc3 20:28 BP 112 / 79; Pulse 62; Resp 16; Pulse Ox 95% on R/A; Pain 0/10; aa1 12:01 Body Mass Index 24.41 (81.65 kg, 182.88 cm) MDM: 12:52 Patient medically screened. [facility] 13:14 Data reviewed: vital signs, nurses notes, lab test result(s), EKG, radiologic studies, [facility] CT scan, plain films. 10/11 12:21 Order name: T\T\S; Complete Time: 14:54 snw 10/11 12:21 Order name: Amylase, Serum; Complete Time: 14:22 snw 10/11 12:21 Order name: Basic Metabolic Panel; Complete Time: 14:22 snw 10/11 12:21 Order name: Blood Culture [facility] 10[facility] 12:21 Order name: C-Reactive Protein; Complete [facility]: 14:22 [facility] 10[facility] 12:21 Order name: CBC with Diff; Complete Time: 14:22 [facility] 10/[facility] 12:21 Order name: Ckmb; Complete Time: 14:22 [facility] 10/[facility] 12:21 Order name: CPK; Complete Time: 14:[facility] 10/[facility] 12:21 Order name: Lactate; Complete Time: 14:[facility] 10/[facility] 12:21 Order name: LFT's; Complete Time: 14:[facility] 10/[facility] 12:21 Order name: Lipase; Complete Time: 14:[facility] 10/11 12:21 Order name: Procalcitonin; Complete Time: 14:22 [facility] 10/[facility] 12:21 Order name: Protime (+inr); Complete Time: 14:[facility] 10/[facility] 12:21 Order name: Ptt, Activated; Complete Time: 14:[facility] 10/[facility] 12:21 Order name: Sed Rate; Complete Time: 14: [facility] 10[facility] 12:21 Order name: Troponin (emerg Dept Use Only); Complete Time: 14:22 [facility] 10/11 13:12 Order name: Urine Culture [facility] 10/11 13:12 Order name: Magnesium; Complete Time: 14:22 [facility] 10/11 13:12 Order name: NT PRO-BNP; Complete Time: 14:22 [facility] 10/11 13:12 Order name: Urine Culture [facility] 10/11 14:15 Order name: ABO/RH no charge; Complete Time: 14:22 [facility] 10/11 15:05 Order name: Basic Metabolic Panel [facility] 10/11 15:05 Order name: Basic Metabolic Panel [facility] 10/11 15:05 Order name: CBC with Automated Diff [facility] 10/11 15:05 Order name: CBC with Automated Diff [facility] 10/11 15:05 Order name: Troponin I [facility] 10/11 15:05 Order name: Troponin I; Complete Time: 17:34 EDCT 10/11 15:05 Order name: Troponin I [facility] 10/11 15:16 Order name: Urine Dipstick--Ancillary (enter results) 10/11 15:17 Order name: Urine Dipstick-Ancillary; Complete Time: 16:57 EDMS 10/11 12:21 Order name: Chest Single View XRAY; Complete Time: 14:22 snw 10/11 12:21 Order name: Accucheck; Complete Time: 13:15 snw 10/11 12:21 Order name: Cardiac monitoring; Complete Time: 12:39 snw 10/11 12:21 Order name: EKG - Nurse/Tech; Complete Time: 12:39 snw 10/11 12:21 Order name: IV Saline Lock - Large Bore; Complete Time: 13:15 snw 10/11 12:21 Order name: Labs collected and sent; Complete Time: 13:15 snw 10/11 12:21 Order name: O2 Per Protocol; Complete Time: 12:39 snw 10/11 12:21 Order name: O2 Sat Monitoring; Complete Time: 12:39 snw 10/11 12:21 Order name: Urine Dipstick-Ancillary (obtain specimen); Complete Time: 15:01 snw 10/11 12:21 Order name: CT Head Brain wo Cont; Complete Time: 14:22 snw 10/11 12:40 Order name: EKG Electrocardiogram; Complete Time: 13:24 EDMS 10/11 13:12 Order name: IV Saline Lock; Complete Time: 13:14 [facility] 10/11 15:05 Order name: Regular EDCT 10/11 15:05 Order name: EKG Electrocardiogram EDCT 10/11 15:05 Order name: EKG Electrocardiogram EDCT 10/11 15:05 Order name: EKG Electrocardiogram EDCT 10/11 15:05 Order name: EKG Electrocardiogram EDCT 10/11 15:05 Order name: Chest Single View EDCT 10/11 15:05 Order name: Chest Single View EDCT 10/11 17:47 Order name: CT Stone Protocol [facility] 10/11 19:07 Order name: CT EDMS Administered Medications: 13:30 Drug: NS 0.9% 500 ml Route: IV; Rate: bolus; Site: right antecubital; cc3 13:50 Follow up: IV Status: Completed infusion; IV Intake: 500ml hj 14:17 Drug: NS 0.9% 1000 ml Route: IV; Rate: 125 ml/hr; Site: left forearm; hj 15:37 Follow up: IV Status: Infusion continued upon admission hj 14:17 Drug: Cefepime 2 grams Route: IVPB; Rate: 200 ml/hr; Infused Over: 30 mins; Site: left hj forearm; 14:45 Follow up: Response: No adverse reaction Disposition: 10/11/17 14:57 Hospitalization ordered by Johnathan Washington for Observation. Preliminary diagnosis are Weakness, Malaise and fatigue. - Bed requested for Telemetry/MedSurg (Inpatient). - Status is Observation. aa1 - Condition is Fair. - Problem is new. - Symptoms have improved. UTI on Admission? No Signatures: Dispatcher [employer] EDMS Nelly Calabrese, RN RN Maddie Cooper RN RN aa1 Wilber Nowak MD MD cha Therrien, Shelly, STEEL TESTER-C STEEL TESTER-Csnw Gustabo Sykes RN RN hj Garcia, Cindy, RN RN Rajni Solis cc3 Corrections: (The following items were deleted from the chart) 20:05 14:57 Hospitalization Ordered by Johnathan Washington MD for Observation. Preliminary diagnosis cg is Weakness; Malaise and fatigue. Bed requested for Telemetry/MedSurg (Inpatient). Status is Observation. Condition is Fair. Problem is new. Symptoms have improved. UTI on Admission? No. carol 20:08 20:05 10/11/2017 14:57 Hospitalization Ordered by Johnathan Washington MD for Observation. cg Preliminary diagnosis is Weakness; Malaise and fatigue. Bed requested for Telemetry/MedSurg (Inpatient). Status is Observation. Condition is Fair. Problem is new. Symptoms have improved. UTI on Admission? No. cg 21:03 20:08 10/11/2017 14:57 Hospitalization Ordered by Johnathan Washington MD for Observation. aa1 Preliminary diagnosis is Weakness; Malaise and fatigue. Bed requested for Telemetry/MedSurg (Inpatient). Status is Observation. Condition is Fair. Problem is new. Symptoms have improved. UTI on Admission? No. cg
[2017-10-11] MEDS ORDERED: ONDANSETRON 4 MG/2 ML VIAL IV PRN (15:02)
[2017-10-11 15:17] LABS: Urine Blood NEGATIVE (NEG); Urine Glucose NEGATIVE (NEG); Urine Protein NEGATIVE (NEG); Urine Specific Gravity 1.015 (1.005-1.030); Urine pH 8.5 (5.0-7.0)
[2017-10-11] MEDS ORDERED: ACETAMINOPHEN 500 MG TAB ONE (18:42)
[2017-10-11] MEDS: ACETAMINOPHEN 500 MG TAB PO PRN (18:45)
--- NOTE | 2017-10-11 19:06 | RAD REPORT ---
EXAM DESCRIPTION: CT - Stone Protocol - 10/11/2017 6:06 pm CLINICAL HISTORY: Flank pain. ABD PAIN COMPARISON: CT ABDOMEN PELVIS WO CONTRAST dated 08/26/2011 TECHNIQUE: Axial images were obtained without oral or IV contrast. Lack of contrast limits solid org an and vascular assessment. The [id number] spans the entirety of the system partially obscuring uppermost abdomen and lung bases. Coronal reformatted images were obtained and reviewed. All CT scans are performed using dose optimization technique as appropriate and may include automated exposure control or mA/KV adjustment according to patient size. FINDINGS: Emphysematous changes are present in both lower lobes with mild pleural thickening. Modera te axial hiatal hernia. Imaged portions of the liver and spleen show no suspicious findings on non-contrast imaging.Cholelith iasis. The pancreas and adrenal glands are normal. No pathologic lymphadenopathy in the abdomen or pe lvis. No urinary tract stones or obstructive uropathy. 7 cm cyst is seen the inferior pole right kidney. Th in rim calcifications are present indicating mild complexity. No bowel obstruction, free air, free fluid or abscess. Normal appendix noted.Prominent diverticulosis coli is present with significant fecal retention. No significant bony abnormality. Evidence of previous hernia repair both inguinal region. Fluid densi ty structure measuring 4.2 x 3.5 cm the left inguinal region is probably a lymphocele. IMPRESSION: No urinary tract stones or obstructive uropathy. Mildly complex 7 cm cyst inferior pole kidney. Diverticulosis coli noted with significant fecal retention in the colon. Cholelithiasis.
[2017-10-11 19:44] VITALS: BMI 24.3
[2017-10-11] MEDS ORDERED: CEFEPIME 1 GM/VIAL IV SCH (21:00)
[2017-10-11] MEDS ORDERED: MELOXICAM 7.5 MG PO PRN (21:44)
[2017-10-11] MEDS ORDERED: MOMETASONE FUROATE IH PRN (21:44)
[2017-10-11] MEDS ORDERED: ENOXAPARIN 40 MG/0.4 ML SQ ONE (21:45)
[2017-10-11] MEDS ORDERED: TRAMADOL HCL 50 MG TAB PO PRN (21:55)
[2017-10-11 22:55] LABS: Urine Appearance CLEAR; Urine Bilirubin NEGATIVE (NEG); Urine Blood NEGATIVE (NEG); Urine Color YELLOW; Urine Glucose NEGATIVE (NEG); Urine Protein NEGATIVE (NEG); Urine Urobilinogen 0.2 mg/dL (0.2-1.0)
[2017-10-11] MEDS ORDERED: CEFEPIME 1 GM/100 ML BAG IV ONE (22:55)
[2017-10-11 22:56] LABS: Urine Microscopic Reflex NO UMIC
[2017-10-11] MEDS: CEFEPIME/SWI 1gm 1 GM/10 ML SYR IVP SCH (23:06)
[2017-10-12] MEDS: ACETAMINOPHEN 500 MG TAB PO PRN (00:28)
--- NOTE | 2017-10-12 05:37 | HP ---
Date of Admission: 10/11/2017 Chief Complaint: Weakness. History Of Present Illness: An 81-year-old male patient with rheumatoid arthritis, coronary artery d isease, was doing fine in his normal usual state of health. This morning, he had significant general ized weakness to the extent that he could not even get up in the bed and could not even get out of th e bed, so the patient's son-in-law tried to help him and he could not help so. Ambulance was called and patient was brought into emergency room. After he was evaluated, he was admitted to the hospital under my service. I saw him in emergency room. His daughter and were present at bedside. No fever, chills. No nausea, vomiting. No constipation. No diarrhea. No bleeding. Review of Systems: Constitutional: As mentioned above. Neurology: As mentioned above. All other systems reviewed and negative. Allergies: TO PENICILLIN CAUSING RASH, NEXIUM CAUSING RASH. Medications: List reviewed and one of his medication is methylprednisolone, he takes 7.5 mg twice a day. Past Medical History: Significant for hypothyroidism, allergic rhinitis, insomnia, coronary artery d isease, hyperlipidemia, hypertension, gastroesophageal reflux disease, diverticulosis, rheumatoid art hritis, constipation. Past Surgical History: Significant for coronary artery angioplasty with stent placement in 2010, her dianne repair. Family History: Significant for osteoarthritis, emphysema. Social History: Negative for smoking, alcohol use. Physical Examination: Last Vital Signs: Temperature 99.5, pulse 70, respiratory rate 19, blood pressure 107/58, oxygen sat uration 98%, height 6 feet, weight 179. General: Awake, alert, oriented, not in distress. HEENT: Head atraumatic, normocephalic. Conjunctivae nonerythematous. Sclerae white. Mouth, no thr ush or edema noted. Ears/Nose, no mass, lesion, discharge noted. Neck: Supple. No JVD, lymph nodes, bruit, thyromegaly noted. Lungs: Bilateral good equal air entry. Clear to auscultation. No rhonchi. No rales. Heart: Normal heart sounds, no murmur or gallop. Abdomen: Soft, bowel sounds normal. No guarding, rigidity, tenderness, mass, hepatosplenomegaly, dis tention, or bruit noted. Extremities: No leg edema. No calf tenderness. Skin: No rash, ulcer, cellulitis. Lymphatics: No lymph node enlargement in neck, supraclavicular, infraclavicular region. Neuro: Generalized weakness. No focal neurological deficit. Chest: Unremarkable. External Genitalia: Deferred. Rectal: Deferred. Laboratory Data: White count 9, hemoglobin 11.6, platelets 446, sed rate more than 140. INR 1.52. Procalcitonin 0.30. Sodium 137, potassium 4.1, chloride 100, bicarb 29, BUN 18, creatinine 1, glucos e 90. Liver function tests unremarkable. Lactic acid 1. C-reactive protein 105. Urinalysis unrema rkable. CAT scan of the abdomen and pelvis without contrast shows no evidence of any stone or obstru ction. Mildly complex 7 cm cyst inferior pole kidney, diverticulosis with significant fecal retentio n in the colon and presence of gallstones. Chest x-ray shows COPD pattern. CAT scan of the head was negative for any acute intracranial changes. Impression: 1.Generalized weakness. 2.Anemia. 3.Coronary artery disease. 4.Rheumatoid arthritis. 5.Chronic steroid therapy. 6.Hypothyroidism. 7.Gastroesophageal reflux disease. 8.Hypertension. 9.Diverticulosis. 10.Hyperlipidemia. 11.Constipation. Plan: Admit patient to hospital for further evaluation and management of this problem. The patient has low-grade fever. No definite source of infection. Empiric antibiotic will be given. Home medic ations will be continued. I will go ahead and order a cortisol level tomorrow morning. We will go a head and see him in the morning for followup. Consult Physical Therapy and we may have to consider N eurology consultation and we will decide whether that needs to be done while in the hospital or on an outpatient basis. Details and plan of treatment discussed with the patient. DVT prophylaxis will b e given per order. EXNIA/MODL Voice ID: [id number]
[2017-10-12 07:01] LABS: Absolute Lymphocytes (CBC) 0.6 K/uL (0.7-4.9); Absolute Monocytes 1.1 K/uL (0.1-1.3); Absolute Neutrophil 5.1 K/uL (1.8-8.0); Basophils % 0.5 % (0-1.3); Eosinophils % 13.1 % (0-4.4); Hematocrit 31.6 % (39.6-49.0); Lymphocytes % 7.3 % (15.3-44.8); MCH 30.6 pg (27.0-35.0); MCV 91.4 fL (80-100); MPV 7.7 fL (7.6-11.3); Monocytes % 13.7 % (3.3-12.3); RBC Red Blood Cell Count 3.46 M/uL (4.33-5.43)
--- NOTE | 2017-10-12 07:37 | RAD REPORT ---
EXAM DESCRIPTION: Evin Single View10/12/2017 7:02 am CLINICAL HISTORY: Chest Pain< COMPARISON: October 11, 2017 FINDINGS: The lungs appear clear of acute infiltrate. The heart is normal size IMPRESSION: No acute abnormalities displayed
[2017-10-12 07:51] LABS: Folic Acid, (Folate) 13.9 ng/mL (3.1-17.5); Potassium 4.2 mmol/L (3.5-5.1); Thyroid Stimulating Hormone 1.17 uIU/mL (0.36-3.74)
[2017-10-12] MEDS ORDERED: PNEUMOCOCCAL VACCINE 0.5 ML IMVAC ONE (08:00)
[2017-10-12] MEDS ORDERED: LEVOTHYROXINE SODIUM 75 MCG PO SCH (09:00)
[2017-10-12] MEDS ORDERED: ASPIRIN EC 81 MG TAB PO SCH (09:00)
[2017-10-12] MEDS ORDERED: FOLIC ACID 1 MG PO SCH (09:00)
[2017-10-12] MEDS ORDERED: METHYLPREDNISOLONE 2 MG PO SCH (09:00)
[2017-10-12] MEDS ORDERED: HOME MED 1 EA UNK (Rabeprazole Sodium [Aciphex] 20 MG) PO SCH (09:00)
[2017-10-12 09:14] VITALS: O2SAT 94
--- NOTE | 2017-10-12 11:42 | RAD REPORT ---
EXAM DESCRIPTION: MRI - Brain Wo Cont - 10/12/2017 11:26 am CLINICAL HISTORY: Ataxia COMPARISON: Head Brain Wo Cont dated 10/11/2017 TECHNIQUE: Axial, sagittal, and coronal magnetic resonance images of the brain were obtained. Contra st was not requested FINDINGS: Mild signal within periventricular white white matter likely represent ischemic changes se condary to mild small vessel disease. Mild cerebral atrophy is noted. Diffusion-weighted/ADC mapping does not reveal evidence of acute infarction. The ventricles are normal caliber. An extra-axial fluid collection is not present Fluid within the sinuses/mastoids is not noted IMPRESSION: No acute intracranial abnormality is seen
[2017-10-12] MEDS: METHYLPREDNISOLONE 40 MG INJ IV SCH ×2 (11:51→17:00)
[2017-10-12] MEDS: CEFEPIME/SWI 1gm 1 GM/10 ML SYR IVP SCH (11:51)
--- NOTE | 2017-10-12 16:16 | EKG ---
Test Date: 2017-10-12 Test Time: 08:52:32 Online Journalist: VILMA MEASUREMENT RESULTS: Intervals: Rate: 68 NH: 198 QRSD: 134 QT: 406 QTc: 431 [place]: P: 39 NH: 198 QRS: -23 T: 11 INTERPRETIVE STATEMENTS: Normal sinus rhythm Right bundle branch block Abnormal ECG Compared to ECG 10/11/2017 11:57:37 Sinus arrhythmia no longer present First degree AV block no longer present Electronically Signed On 10-12-17 16:14:32 CDT by Alin Giraldo
--- NOTE | 2017-10-12 16:22 | EKG ---
Test Date: 2017-10-11 Test Time: 11:57:37 Internal Audit Manager: JESSICA MEASUREMENT RESULTS: Intervals: Rate: 81 OK: 214 QRSD: 126 QT: 358 QTc: 415 [place]: P: 31 OK: 214 QRS: -26 T: 6 INTERPRETIVE STATEMENTS: Sinus rhythm with sinus arrhythmia with 1st degree AV block Right bundle branch block Abnormal ECG Compared to ECG 07/01/2017 10:14:37 First degree AV block now present Atrial premature complex(es) no longer present Left-axis deviation no longer present Electronically Signed On 10-12-17 16:15:06 CDT by Alin Giraldo
[2017-10-12] MEDS ORDERED: ENOXAPARIN 40 MG/0.4 ML SQ SCH (17:00)
[2017-10-12 17:31] VITALS: BP 140/65; TEMP 97.7
[2017-10-12] MEDS ORDERED: HOME MED 1 EA UNK (Pregabalin [Lyrica*] 50 MG) PO SCH (21:00)
[2017-10-12] MEDS ORDERED: HOME MED 1 EA UNK (Simvastatin [Zocor*] 40 MG) PO SCH (21:00)
[2017-10-12] MEDS ORDERED: HOME MED 1 EA UNK (Alprazolam [Xanax] 1 MG) PO SCH (21:00)
--- NOTE | 2017-10-12 22:49 | PN ---
Date of Progress Note: 10/12/2017 Subjective: The patient was seen this morning for followup. No new complaints or problems reported by the patient this morning when I saw him. Objective: Vital Signs: Reviewed. HEENT: Unremarkable. Lungs: Clear to auscultation. Heart: Sounds normal. Abdomen: Soft. Bowel sounds normal. No guarding, rigidity, tenderness, or distention. Extremities: No leg edema. Laboratory Data: Reviewed. Amylase is low. Impression: 1.Adrenal insufficiency. 2.Chronic steroid therapy. 3.Rheumatoid arthritis. 4.Coronary artery disease. 5.Generalized weakness. 6.Anemia. Plan: We will continue current medication. We will go ahead and start him on IV steroid, Solu-Medro l as per order. MRI of the brain was ordered to be done today to rule out any underlying stroke. Ks s CAT scan of the brain was negative yesterday. Physical therapy to help ambulate the patient today. Depending on the patient's condition, we will decide if we can plan to discharge him to go home sudarshan orrow or not, and upon discharge, we will discharge him with higher dose of steroid than his maintenance dose that he was taking. He is on chronic steroid therapy for r heumatoid arthritis problem. XENIA/MODL Voice ID: [id number] Report ID: [id number]
[2017-10-18] MEDS ORDERED: METHOTREXATE 15 MG PO SCH (09:00)
== END 2017-10-12 19:57 | disposition home or self-care (01) ==
LOC: ER 11:56 → ERHOLD 15:00 → 2ND 20:34
PROVIDERS: ADMIT Internal Medicine; ATTEND Internal Medicine
DX: E27.40 Unspecified adrenocortical insufficiency (principal); M06.9 Rheumatoid arthritis, unspecified; I25.10 Atherosclerotic heart disease of native coronary artery without angina pectoris; D64.9 Anemia, unspecified; R53.1 Weakness; E03.9 Hypothyroidism, unspecified; I10 Essential (primary) hypertension; Z88.0 Allergy status to penicillin; Z79.52 Long term (current) use of systemic steroids; Z95.5 Presence of coronary angioplasty implant and graft
CPT/HCPCS: 36415; 70450; 70551; 71045 ×2; 74176; 76377; 80048 ×2; 80076; 81003 ×2; 82150; 82533; 82550; 82553; 82607; 82746; 83605; 83690; 83735; 83880; 84145; 84443; 84484 ×3; 85025 ×2; 85610; 85652; 85730; 86140; 86850; 86900; 86901; 87040 ×2; 87086; 87088; 93005 ×2; 96361; 96374; 97163; 99285; J0692 ×3; J1650 ×2; J2920 ×2; J7030; G0378

== ENCOUNTER 2017-11-18 12:57 | Emergency (ER) | payer OTHER ==
[2017-11-18 13:52] LABS: Absolute Lymphocytes (CBC) 0.3 K/uL (0.7-4.9); Absolute Monocytes 0.5 K/uL (0.1-1.3); Absolute Neutrophil 8.8 K/uL (1.8-8.0); Basophils % 0.4 % (0-1.3); Eosinophils % 1.8 % (0-4.4); Hematocrit 32.1 % (39.6-49.0); Lymphocytes % 2.8 % (15.3-44.8); MCH 29.7 pg (27.0-35.0); MCV 88.3 fL (80-100); MPV 7.7 fL (7.6-11.3); Monocytes % 5.2 % (3.3-12.3); RBC Red Blood Cell Count 3.63 M/uL (4.33-5.43)
[2017-11-18 14:11] LABS: Magnesium 2.6 mg/dL (1.8-2.4)
[2017-11-18] MEDS ORDERED: HYDROCORTISONE SUC 100 MG INJ ONE (14:18)
[2017-11-18] MEDS ORDERED: NA CHLORIDE 0.9% 500 ML ONE (14:18)
--- NOTE | 2017-11-18 14:50 | RAD REPORT ---
EXAM DESCRIPTION: Evin Single View11/18/2017 2:44 pm CLINICAL HISTORY: cough COMPARISON: September 2017 FINDINGS: The lungs appear clear of acute infiltrate. The heart is normal size IMPRESSION: No acute abnormalities displayed
[2017-11-18 15:39] LABS: Urine Blood NEGATIVE (NEG); Urine Glucose NEGATIVE (NEG); Urine Protein NEGATIVE (NEG)
[2017-11-18 15:56] LABS: Urine Bacteria <20 /HPF (NONE SEEN); Urine RBC <5 /HPF (NONE SEEN)
[2017-11-18 15:57] LABS: Urine Culture Reflex Order NOT NEEDED
--- NOTE | 2017-11-18 17:07 | ER ---
Nurse's Notes [facility] Name: Diogo Ingram Age: 82 yrs Sex: Male : 1935 Arrival Date: 11/18/2017 Time: 13:00 Bed 24 Private MD: Shaina Washington C Diagnosis: Weakness;Dehydration Presentation: 11/18 13:05 Presenting complaint: Patient states: He has been having generalized weakness on and aj1 off for the past several weeks. reports that last time that this happened his cortisol level was very low. He has been taking prednisone at home. Patient also reports chills. Transition of care: patient was not received from another setting of care. 13:05 Method Of Arrival: Wheelchair aj1 13:08 Onset of symptoms was September 2017. Risk Assessment: Do you want to hurt yourself or aj1 someone else? Patient reports no desire to harm self or others. Initial Sepsis Screen: Does the patient meet any 2 criteria? No. Patient's initial sepsis screen is negative. Does the patient have a suspected source of infection? No. Patient's initial sepsis screen is negative. Care prior to arrival: None. 13:08 Acuity: LAYO 3 aj1 Triage Assessment: 13:10 General: Appears in no apparent distress. comfortable, Behavior is calm, cooperative, aj1 appropriate for age. Pain: Denies pain. Neuro: Level of Consciousness is awake, alert, obeys commands. Cardiovascular: Patient's skin is warm and dry. Respiratory: Airway is patent Respiratory effort is even, unlabored, Respiratory pattern is regular, symmetrical. Historical: - Allergies: 13:10 PENICILLINS; aj1 13:10 Nexium; aj1 - Home Meds: 13:10 Aciphex 20 mg Oral TbEC 1 tab once daily [Active]; folic acid 1 mg Oral tab 1 tab once aj1 daily [Active]; levothyroxine 75 mcg tab 1.5 tabs once daily [Active]; Lyrica 25 mg Oral cap daily [Active]; meloxicam 7.5 mg Oral tab 1 tab as needed [Active]; Methotrexate (Anti-Rheumatic) 2.5 mg x 6 Oral WEEKLY [Active]; Xanax 1 mg Oral tab nightly [Active]; Zocor 40 mg Oral tab 1 tab once daily [Active]; Prednisone Oral [Active]; - PMHx: 13:10 failed stress test; Hypothyroidism; Rheumatoid Arthritis; low cortisol levels; aj1 - PSHx: 13:32 Hernia repair; Heart stents; kr2 - Immunization history:: Flu vaccine is not up to date. - Social history:: Smoking status: Patient/guardian denies using tobacco. - Ebola Screening: : Patient denies travel to an Ebola-affected area in the 21 days before illness onset. - Family history:: not pertinent. - Hospitalizations: : No recent hospitalization is reported. Screenin:29 Abuse screen: Denies threats or abuse. Denies injuries from another. Nutritional kr2 screening: No deficits noted. Tuberculosis screening: No symptoms or risk factors identified. Fall Risk IV access (20 points). Ambulatory Aid- Crutches/Cane/Walker (15 pts). Gait- Weak (10 pts.). Assessment: 13:25 General: Appears in no apparent distress. comfortable, well groomed, well developed, kr2 well nourished, Behavior is calm, cooperative, appropriate for age. Pain: Denies pain. Neuro: Level of Consciousness is awake, alert, obeys commands, Oriented to person, place, time, situation, Vat House Supervisor are equal bilaterally. Cardiovascular: Reports fatigue, Heart tones S1 S2 Patient's skin is warm and dry. Rhythm is regular. Cardiovascular: Reports since Night sweats off and on for 2 weeks. Respiratory: Airway is patent Respiratory effort is even, unlabored, Respiratory pattern is regular, symmetrical. GI: Abdomen is flat, non-distended, Reports nausea, decreased appetite for the past 2 weeks. : Reports difficulty urinating, weak urine stream, feeling like he can't finish urinating. EENT: Oral mucosa is moist. Derm: Skin is intact, with poor turgor Skin is dry, Skin is pale, pink, Skin temperature is warm. Musculoskeletal: Circulation, motion, and sensation intact. 14:30 Reassessment: Patient appears in no apparent distress at this time. Patient and/or kr2 family updated on plan of care and expected duration. Pain level reassessed. Patient is alert, oriented x 3, equal unlabored respirations, skin warm/dry/pink. Patient denies pain at this time. 15:20 Reassessment: Patient appears in no apparent distress at this time. Patient and/or kr2 family updated on plan of care and expected duration. Pain level reassessed. Patient is alert, oriented x 3, equal unlabored respirations, skin warm/dry/pink. Patient denies pain at this time. 16:07 Reassessment: Patient appears in no apparent distress at this time. Patient and/or kr2 family updated on plan of care and expected duration. Pain level reassessed. Patient is alert, oriented x 3, equal unlabored respirations, skin warm/dry/pink. Patient denies pain at this time. Vital Signs: 13:10 BP 116 / 64; Pulse 79; Resp 20; Temp 98.4(TE); Pulse Ox 94% on R/A; Weight 78.93 kg aj1 (R); Height 6 ft. 0 in. (182.88 cm) (R); Pain 0/10; 14:50 BP 115 / 63; Pulse 74; Resp 18; Pulse Ox 93% on R/A; mg2 15:20 BP 128 / 62; Pulse 63; Resp 19; Pulse Ox 97% on R/A; kr2 16:07 BP 104 / 64; Pulse 70; Resp 19; Pulse Ox 95% on R/A; kr2 13:10 Body Mass Index 23.60 (78.93 kg, 182.88 cm) aj1 ED Course: 13:00 Patient arrived in ED. as 13:00 Shaina Washington MD is Private Physician. as 13:08 Triage completed. aj1 13:10 Arm band placed on Patient placed in an exam room. aj1 13:12 Pepe Hanson MD is Attending Physician. rn 13:14 Mireya Amaya, NAHOMI is Primary Nurse. kr2 13:30 Patient has correct armband on for positive identification. Bed in low position. Call kr2 light in reach. Side rails up X 1. Adult w/ patient. monitor worker on. Pulse ox on. NIBP on. Door closed. Warm blanket given. Head of bed elevated. 13:43 Initial lab(s) drawn, by me, sent to lab. Inserted saline lock: 20 gauge in right jb1 antecubital area, using aseptic technique. Blood collected. 13:46 EKG done, by service technician. reviewed by Pepe Hanson MD. 3 13:58 X-ray completed. Portable x-ray completed in exam room. Patient tolerated procedure ml well. 13:59 XRAY Chest (1 view) In Process Unspecified. EDMS 15:10 Urine collected: clean catch specimen, clear. kr2 17:07 Shaina Washington MD is Referral Physician. rn 17:16 No provider procedures requiring assistance completed. IV discontinued, intact, mg2 bleeding controlled, No redness/swelling at site. Pressure dressing applied. Administered Medications: 14:15 Drug: NS 0.9% 500 ml Route: IV; Rate: bolus; Site: right antecubital; kr2 17:17 Follow up: Response: No adverse reaction; IV Status: Completed infusion mg2 14:15 Drug: HydroCORTISONE 100 mg Route: IVP; Site: right antecubital; kr2 15:52 Follow up: Response: No adverse reaction kr2 Outcome: 17:07 Discharge ordered by MD. rn 17:16 Discharged to home via wheelchair, with family. mg2 17:16 Condition: stable 17:16 Discharge instructions given to patient, family, Instructed on discharge instructions, follow up and referral plans. Demonstrated understanding of instructions, follow-up care. 17:18 Patient left the ED. mg2 Signatures: Dispatcher [employer] EDMA Diogo Carreno jb1 Bettina Camarena RN RN aj1 Margo Garcia Melissa ml Nieto, Roman, MD MD rn Reaves, Karey, RN RN kr2 Juan Pablo Rothman RN RN mg2 Bonnie Rene 3 Corrections: (The following items were deleted from the chart) 13:10 13:05 Presenting complaint: Patient states: He has been having generalized weakness on aj1 and off for the past several weeks. reports that last time that this happened his cortisol level was very low. He has been taking methyprednisolone at home. Patient also reports chills. aj1
--- NOTE | 2017-11-18 17:07 | EDPHYS ---
Physician Documentation [facility] Name: Diogo Ingram Age: 82 yrs Sex: Male : 1935 Arrival Date: 11/18/2017 Time: 13:00 Bed 24 Private MD: Shaina Washington C ED Physician Pepe Hanson HPI: 11/18 14:02 This 82 yrs old Male presents to ER via Wheelchair with complaints of rn Weakness. 14:02 The patient presents to the emergency department with weakness of the. Onset: The rn symptoms/episode began/occurred yesterday. Associated signs and symptoms: Pertinent positives: chills, nausea, weakness, Pertinent negatives: fever, headache, seizure, syncope. Severity of symptoms: At their worst the symptoms were moderate in the emergency department the symptoms have improved. The patient has experienced similar episodes in the past. Family reports 2-3 days of cough, nausea, yesterday began with generalized weakness, not as bad as past but having difficulty walking on his own, taking daily steroids for years for RA, also reports increased urinary frequency. + nausea but no abd pain. Family concerned because last time was told weakness due to low cortisol. . Historical: - Allergies: 13:10 PENICILLINS; aj1 13:10 Nexium; aj1 - Home Meds: 13:10 Aciphex 20 mg Oral TbEC 1 tab once daily [Active]; folic acid 1 mg Oral tab 1 tab once aj1 daily [Active]; levothyroxine 75 mcg tab 1.5 tabs once daily [Active]; Lyrica 25 mg Oral cap daily [Active]; meloxicam 7.5 mg Oral tab 1 tab as needed [Active]; Methotrexate (Anti-Rheumatic) 2.5 mg x 6 Oral WEEKLY [Active]; Xanax 1 mg Oral tab nightly [Active]; Zocor 40 mg Oral tab 1 tab once daily [Active]; Prednisone Oral [Active]; - PMHx: 13:10 failed stress test; Hypothyroidism; Rheumatoid Arthritis; low cortisol levels; aj1 - PSHx: 13:32 Hernia repair; Heart stents; kr2 - Immunization history:: Flu vaccine is not up to date. - Social history:: Smoking status: Patient/guardian denies using tobacco. - Ebola Screening: : Patient denies travel to an Ebola-affected area in the 21 days before illness onset. - Family history:: not pertinent. - Hospitalizations: : No recent hospitalization is reported. ROS: 14:02 Constitutional: Negative for fever, and weight loss, + night sweats Eyes: Negative for rn injury, pain, redness, and discharge, Neck: Negative for injury, pain, and swelling, Cardiovascular: Negative for chest pain, palpitations, and edema, Respiratory: + cough and mild sob Abdomen/GI: Negative for abdominal pain, diarrhea, and constipation, MS/Extremity: Negative for injury and deformity, Skin: Negative for injury, rash, and discoloration, Neuro: + generalized weakness Exam: 14:02 Constitutional: This is a well developed, well nourished patient who is awake, alert, rn and in no acute distress. Head/Face: Normocephalic, atraumatic. Eyes: Pupils equal round and reactive to light, extra-ocular motions intact. Lids and lashes normal. Conjunctiva and sclera are non-icteric and not injected. Cornea within normal limits. Periorbital areas with no swelling, redness, or edema. ENT: dry MM Cardiovascular: Regular rate and rhythm with a normal S1 and S2. No gallops, murmurs, or rubs. Normal PMI, no JVD. No pulse deficits. Respiratory: + mild tachypnea, with bilateral diminished breath sounds, no wheezing Abdomen/GI: soft, non-tender MS/ Extremity: Pulses equal, no cyanosis. Neurovascular intact. Full, normal range of motion. Equal circumference. Neuro: Awake and alert, GCS 15, oriented to person, place, time, and situation. Cranial nerves II-XII grossly intact. Motor strength 4/5 in all extremities. Sensory grossly intact. Vital Signs: 13:10 BP 116 / 64; Pulse 79; Resp 20; Temp 98.4(TE); Pulse Ox 94% on R/A; Weight 78.93 kg aj1 (R); Height 6 ft. 0 in. (182.88 cm) (R); Pain 0/10; 14:50 BP 115 / 63; Pulse 74; Resp 18; Pulse Ox 93% on R/A; mg2 15:20 BP 128 / 62; Pulse 63; Resp 19; Pulse Ox 97% on R/A; kr2 16:07 BP 104 / 64; Pulse 70; Resp 19; Pulse Ox 95% on R/A; kr2 13:10 Body Mass Index 23.60 (78.93 kg, 182.88 cm) aj1 MDM: 13:12 Patient medically screened. rn 17:05 Data reviewed: vital signs, nurses notes, lab test result(s), EKG, radiologic studies, rn plain films, and as a result, I will discharge patient. Counseling: I had a detailed discussion with the patient and/or guardian regarding: the historical points, exam findings, and any diagnostic results supporting the discharge/admit diagnosis, lab results, radiology results, the need for outpatient follow up, to return to the emergency department if symptoms worsen or persist or if there are any questions or concerns that arise at home. Response to treatment: the patient's symptoms have markedly improved after treatment, the patient's condition has returned to base line, the patient is now symptom free, patient is well hydrated. and as a result, I will discharge patient. Special discussion: I discussed with the patient/guardian in detail that at this point there is no indication for admission to the hospital. It is understood, however, that if the symptoms persist or worsen the patient needs to return immediately for re-evaluation. Based on the history and exam findings, there is no indication for further emergent testing or inpatient evaluation. I discussed with the patient/guardian the need to see the neurologist for further evaluation of the symptoms. I discussed with the patient/guardian the need to see the primary care provider for further evaluation of the symptoms. I discussed with the patient/guardian the need to see the adjuster piano action for further evaluation of the symptoms. ED course: Pt improved, normal w/u, normal cortisol, no evidence of infection, spoke with Dr. Washington, states ok to dc home, double up steroids, and make appt for this next week. Patient happy to go home, states feels much better, is now ambulatory to bathroom a few times while here, normal vitals. . 11/18 13:32 Order name: CBC with Diff; Complete Time: 15:00 rn 11/18 13:32 Order name: Basic Metabolic Panel; Complete Time: 15:00 rn 11/18 13:32 Order name: Urine Culture rn 11/18 13:32 Order name: Urine Microscopic Only; Complete Time: 16:07 rn 11/18 13:32 Order name: Blood Culture Adult (2) rn 11/18 13:32 Order name: Procalcitonin; Complete Time: 15:00 rn 11/18 13:32 Order name: XRAY Chest (1 view); Complete Time: 15:00 rn 11/18 13:32 Order name: Lactate; Complete Time: 15:00 rn 11/18 13:32 Order name: Flu; Complete Time: 15:00 rn 11/18 13:33 Order name: Magnesium; Complete Time: 15:00 rn 11/18 13:34 Order name: Cortisol; Complete Time: 16:07 rn 11/18 15:13 Order name: Urine Dipstick--Ancillary (enter results); Complete Time: 16:07 eb 11/18 13:32 Order name: IV Start; Complete Time: 14:08 rn 11/18 13:32 Order name: Urine Dipstick-Ancillary (obtain specimen); Complete Time: 15:14 rn 11/18 13:32 Order name: EKG; Complete Time: 13:33 rn 11/18 13:32 Order name: EKG - Nurse/Tech; Complete Time: 14:08 rn Administered Medications: 14:15 Drug: NS 0.9% 500 ml Route: IV; Rate: bolus; Site: right antecubital; kr2 17:17 Follow up: Response: No adverse reaction; IV Status: Completed infusion mg2 14:15 Drug: HydroCORTISONE 100 mg Route: IVP; Site: right antecubital; kr2 15:52 Follow up: Response: No adverse reaction kr2 Disposition: 11/18/17 17:07 Discharged to Home. Impression: Weakness, Dehydration. - Condition is Stable. - Discharge Instructions: Dehydration, Adult, Weakness. - Medication Reconciliation Form, Thank You Letter, Antibiotic Education, Prescription Opioid Use form. - Follow up: Shaina Washington MD; When: 5 - 6 days; Reason: Recheck today's complaints, Re-evaluation by your physician. - Problem is new. - Symptoms have improved. Signatures: Dispatcher [employer] EDBettina Wallis RN RN aj1 Pepe Hanson MD MD rn Reaves, Karey, RN RN kr2 Juan Pablo Rothman RN RN mg2 Corrections: (The following items were deleted from the chart) 14:06 14:02 Constitutional: Negative for fever, and weight loss, + night sweats Eyes: rn Negative for injury, pain, redness, and discharge, Neck: Negative for injury, pain, and swelling, Cardiovascular: Negative for chest pain, palpitations, and edema, Respiratory: + cough and mild sob Abdomen/GI: Negative for abdominal pain, nausea, vomiting, diarrhea, and constipation, MS/Extremity: Negative for injury and deformity, Skin: Negative for injury, rash, and discoloration, Neuro: + generalized weakness rn 17:18 17:07 11/18/2017 17:07 Discharged to Home. Impression: Weakness; Dehydration. Condition mg2 is Stable. Forms are Medication Reconciliation Form, Thank You Letter, Antibiotic Education, Prescription Opioid Use. Follow up: Shaina Washington; When: 5 - 6 days; Reason: Recheck today's complaints, Re-evaluation by your physician. Problem is new. Symptoms have improved. rn
[2017-11-18 17:23] VITALS: TEMP 98.4
[2017-11-18 17:27] VITALS: BP 104/64; O2SAT 95
--- NOTE | 2017-11-19 07:51 | EKG ---
Test Date: 2017-11-18 Test Time: 13:42:02 [employer]: TREY MEASUREMENT RESULTS: Intervals: Rate: 70 MS: 174 QRSD: 132 QT: 416 QTc: 449 [place]: P: 31 MS: 174 QRS: -25 T: 28 INTERPRETIVE STATEMENTS: Normal sinus rhythm with sinus arrhythmia Right bundle branch block Abnormal ECG Compared to ECG 10/12/2017 08:52:32 No significant changes Electronically Signed On 11-19-17 07:48:55 CDT by Alin Giraldo
== END 2017-11-18 17:18 | disposition home or self-care (01) ==
LOC: ER 12:57
DX: E86.0 Dehydration (principal); E03.9 Hypothyroidism, unspecified; Z95.818 Presence of other cardiac implants and grafts; Z88.0 Allergy status to penicillin; Z88.8 Allergy status to other drugs, medicaments and biological substances
CPT/HCPCS: 36415; 71045; 80048; 82533; 83605; 83735; 84145; 85025; 87040 ×2; 87088; 87804 ×2; 93005; 96361; 96374; 99285; J1720; 81003; 81015; 87086